=== PATIENT | male | born 2000 | race Caucasian/White ===

== ENCOUNTER 2022-05-05 19:27 | Emergency (ER) | payer BC ==
[~2022-05-05] VITALS: Ht 172.7 cm; Wt 65.0 kg
[2022-05-05 19:38] VITALS: TEMP 98.8
[2022-05-05 21:25] LABS: COLLECTION METHOD CLEAN CATCH
[2022-05-05 21:31] LABS: HEMATOCRIT 41.4 % (36.0-47.0); HEMOGLOBIN 14.9 g/dl (12.5-16.1); MEAN CELL VOLUME 84 fl (80.0-95.0); MEAN CORPUSCULAR HEMOGLOBIN 30 pg (26-32); MEAN CORPUSCULAR HGB CONC 36 g/dl (33.0-37.0); MEAN PLATELET VOLUME 10.4 fl (7.4-10.4); PLATELET COUNT 173 K/mm3 (130-400); RED BLOOD COUNT 4.94 M/mm3 (4.20-5.60); REDCELL DISTRIBUTION WIDTH-CV 11.8 % (11.5-14.5)
[2022-05-05 21:44] LABS: BILIRUBIN,TOTAL 0.9 mg/dL (0.2-1.2); CALCIUM 9.4 mg/dL (8.4-10.2); CREATININE, serum 1.08 mg/dL (0.72-1.25)
[2022-05-05 21:51] LABS: PH 5.5 (5.0-8.5); URINE APPEARANCE Clear (CLEAR/HAZY); URINE BLOOD Negative (NEGATIVE); URINE COLOR Amber (YELLOW); URINE GLUCOSE Negative (NEGATIVE); URINE NITRATE Negative (NEGATIVE); URINE PROTEIN(semi-quant) 1+ (NEGATIVE); URINE UROBILINOGEN 0.2 E.U/dL (0.2-1.0)
[2022-05-05 21:52] LABS: URINE KETONE 3+ (NEGATIVE)
[2022-05-05 21:54] LABS: MUCOUS Present (NOT PRESENT); SQUAMOUS EPITHELIAL None Seen /hpf (0-10); URINE BACTERIA None Seen /hpf (NONE SEEN); URINE RBC 0-2 /hpf (0-2)
[2022-05-05 22:14] LABS: BAND 15 % (0-10); LYMPHOCYTE 5 % (20.0-51.0); METAMYELOCYTE 1 % (0-0); NEUTROPHILS 73 % (42.0-75.2); PLATELET ESTIMATE NORMAL (NORMAL)
[2022-05-05 23:06] VITALS: BP 118/73; PULSE 69
== END 2022-05-05 23:12 | disposition home or self-care (01) ==
LOC: COL.ER 19:27
PROVIDERS: Nurse Practitioner
DX: J02.9 Acute pharyngitis, unspecified (principal)
CPT/HCPCS: J1885; J2405; J7030

== ENCOUNTER → 2022-05-06 | Outpatient (CLI) | payer BC | LOC: COL.RAD 13:46 | DX: R22.1 Localized swelling, mass and lump, neck (principal) | CPT/HCPCS: Q9967 ==